=== PATIENT | female | born 1980 | race Caucasian/White ===

== ENCOUNTER → 2020-06-21 08:58 | Outpatient (BNVA) | payer MEDICARE, SELFPAY | PROVIDERS: Family Provider Family Medicine; PCP Registered Nurse; Visit Provider Registered Nurse | DX: Z20.828 Contact with and (suspected) exposure to other viral communicable diseases (principal) | CPT/HCPCS: 87635 ==

== ENCOUNTER → 2021-10-22 09:16 | Outpatient (BNVA) | payer MEDICARE, SELFPAY | PROVIDERS: Family Provider Family Medicine; PCP Registered Nurse; Visit Provider Registered Nurse | DX: F33.1 Major depressive disorder, recurrent, moderate (principal); E78.5 Hyperlipidemia, unspecified; E53.8 Deficiency of other specified B group vitamins; E55.9 Vitamin D deficiency, unspecified; I10 Essential (primary) hypertension; R60.0 Localized edema; F41.9 Anxiety disorder, unspecified; G44.011 Episodic cluster headache, intractable; G90.09 Other idiopathic peripheral autonomic neuropathy; G60.9 Hereditary and idiopathic neuropathy, unspecified; M54.12 Radiculopathy, cervical region; G89.29 Other chronic pain | CPT/HCPCS: 80053; 80061; 82306; 82607; 85025 ==

== ENCOUNTER 2022-05-03 09:08 | Outpatient (CLI) | payer MEDICARE, SELFPAY ==
--- NOTE | 2022-05-03 09:20 | MM_ITS ---
WS: [id number] Bilateral screening 3D tomosynthesis digital mammogram, 05/03/2022 Clinical Data: SCREEN Comparison: None. Findings: The breast parenchymal pattern shows fibroglandular tissue. No spiculated masses or clustered calcifi cations are seen. There are no secondary signs of carcinoma. MM/[place] [id number] Impression: 1. Negative bilateral mammogram with no prior exam for review. 2. Recommend annual screening mammograms. BIRADS: 1-Negative FOLLOW UP: 1 Year Follow-up The CAD chemical checker was used.
== END 2022-05-03 09:09 | disposition home or self-care (01) ==
PROVIDERS: PCP Registered Nurse; Visit Provider Registered Nurse
DX: Z12.31 Encounter for screening mammogram for malignant neoplasm of breast (principal)
CPT/HCPCS: 77063; 77067

== ENCOUNTER → 2022-08-08 11:23 | Outpatient (BNVA) | payer MEDICARE, SELFPAY | PROVIDERS: PCP Registered Nurse; Visit Provider Registered Nurse | DX: E53.8 Deficiency of other specified B group vitamins (principal); Z86.718 Personal history of other venous thrombosis and embolism | CPT/HCPCS: 80053; 82607; 85025 ==

== ENCOUNTER → 2022-08-12 10:57 | Outpatient (BNVA) | payer MEDICARE, SELFPAY | PROVIDERS: PCP Registered Nurse; Visit Provider Registered Nurse | DX: D64.9 Anemia, unspecified (principal) | CPT/HCPCS: 83550; 85007; 85027 ==

== ENCOUNTER → 2022-08-26 10:27 | Outpatient (BNVA) | payer MEDICARE, SELFPAY | PROVIDERS: PCP Registered Nurse; Visit Provider Registered Nurse | DX: Z86.718 Personal history of other venous thrombosis and embolism (principal) | CPT/HCPCS: 85610 ==

== ENCOUNTER → 2022-08-30 11:32 | Outpatient (BNVA) | payer MEDICARE, SELFPAY | PROVIDERS: PCP Registered Nurse; Visit Provider Registered Nurse | DX: Z86.718 Personal history of other venous thrombosis and embolism (principal) | CPT/HCPCS: 85610 ==

== ENCOUNTER → 2022-09-04 10:49 | Outpatient (BNVA) | payer MEDICARE, SELFPAY | PROVIDERS: PCP Registered Nurse; Visit Provider Registered Nurse | DX: Z51.81 Encounter for therapeutic drug level monitoring (principal); Z79.01 Long term (current) use of anticoagulants; Z86.718 Personal history of other venous thrombosis and embolism | CPT/HCPCS: 85610 ==

== ENCOUNTER → 2022-09-06 10:39 | Outpatient (BNVA) | payer MEDICARE, SELFPAY | PROVIDERS: PCP Registered Nurse; Visit Provider Registered Nurse | DX: Z51.81 Encounter for therapeutic drug level monitoring (principal); Z79.01 Long term (current) use of anticoagulants; Z86.718 Personal history of other venous thrombosis and embolism | CPT/HCPCS: 85610 ==

== ENCOUNTER → 2022-09-09 15:50 | Outpatient (BNVA) | payer MEDICARE, SELFPAY | PROVIDERS: PCP Registered Nurse; Visit Provider Nurse Practitioner Family | DX: Z86.718 Personal history of other venous thrombosis and embolism (principal) | CPT/HCPCS: 85610 ==

== ENCOUNTER 2023-04-07 17:02 | Outpatient (CLI) | payer MEDICARE, SELFPAY ==
--- NOTE | 2023-04-07 17:00 | USR_ITS ---
PROCEDURE INFORMATION: Exam: US Left Non-Vascular Joint or Other Extremity Structure Exam date and time: 04/07/2023 5:39 PM Age: 42 years old Clinical indication: Cellulitis; Lower leg; Left; Additional info: L03.116 - cellulitis of left lower limb TECHNIQUE: Imaging protocol: Left US joint or other nonvascular extremity structure or structures. Real-time ultrasound with image documentation. Limited study. Exam focused on the lower extremity in the region of clinical interest. COMPARISON: No relevant prior studies available. FINDINGS: Soft tissues: The increased echogenicity of the subcutaneous tissues in the area of interest. There all also areas of fluid in the fascial planes in the area of interest. There is a complex fluid collection with internal septation and debris lateral to the left knee and in the proximal calf. This measures approximately 6.5 x 1.7 x 5.9 cm. Findings are concerning for an abscess. US/US soft tissue/extremity [id number] IMPRESSION: Findings suspicious for a large abscess with surrounding cellulitis in the area lateral to the left knee and in the proximal/lateral left calf
[2023-04-07 18:02] LABS: Basophils # 0.1 10^3/uL (0.0-0.1); Basophils % 0.9 %; Eosinophils % 0.7 %; Hematocrit 39.6 % (36-47); Lymphocytes # 1.3 10^3/uL (0.8-4.8); Lymphocytes % 23.1 %; Mean Corpuscular HGB Conc 31.6 g/dL (30-55); Mean Corpuscular Hemoglobin 30.6 pg (27-33); Mean Corpuscular Volume 96.8 fl (85-98); Mean Platelet Volume 9.7 fL (7.4-10.4); Monocytes # 0.3 10^3/uL (0.2-0.9); Monocytes % 5.7 %; Neutrophils % 69.2 %; Nucleated Red Blood Cells % 0 %; Platelet Count 210 10^3/cmm (157-399); Red Blood Count 4.09 10^6/uL (3.85-5.65); Red Cell Distribution Width 14.8 % (12.1-15.1); White Blood Count 5.63 10^3/uL (3.29-11.43)
[2023-04-07 18:30] LABS: Alanine Aminotransferase 27 U/L (0-33); Alkaline Phosphatase 66 U/L (35-105); Aspartate Amino Transferase 17 U/L (0-32); Blood Urea Nitrogen 11 mg/dL (6-20); Calcium 8.2 mg/dL (8.5-10.5); Carbon Dioxide 23 mmol/L (22-29); Chloride 107 mmol/L (98-107); Globulin 2.5 g/dL (1.3-4.6); Glomerular Filtration Rate 91.8 mL/min (90-130); Glucose 97 mg/dL (65-115); Osmolality Calculated 289 mOsm/kg (285-295); Sodium 140 mmol/L (136-145); Total Bilirubin 0.2 mg/dL (0.15-1.2); Total Protein 6.5 g/dL (6.6-8.7)
== END 2023-04-07 17:03 | disposition home or self-care (01) ==
PROVIDERS: PCP Registered Nurse; Visit Provider Registered Nurse
DX: L03.116 Cellulitis of left lower limb (principal); R93.6 Abnormal findings on diagnostic imaging of limbs
CPT/HCPCS: 36415; 76882; 80053; 85025

== ENCOUNTER 2023-04-07 20:35 | Inpatient (IN) | payer MEDICARE, SELFPAY ==
[2023-04-07 20:42] VITALS: BP 81/54; PULSE 84; RESP 17; TEMP 36.6; O2SAT 98; BMI 50.3
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
[2023-04-07 21:44] LABS: Basophils # 0.1 10^3/uL (0.0-0.1); Basophils % 0.8 %; Eosinophils # 0.1 10^3/uL (0.0-0.8); Eosinophils % 1.2 %; Hematocrit 41.4 % (36-47); Lymphocytes # 1.9 10^3/uL (0.8-4.8); Lymphocytes % 31.2 %; Mean Corpuscular HGB Conc 30.9 g/dL (30-55); Mean Corpuscular Hemoglobin 29.9 pg (27-33); Mean Corpuscular Volume 96.7 fl (85-98); Monocytes # 0.4 10^3/uL (0.2-0.9); Neutrophils # 3.63 10^3/uL (1.8-7.7); Neutrophils % 60.5 %; Nucleated Red Blood Cells % 0 %; Platelet Count 214 10^3/cmm (157-399); Red Blood Count 4.28 10^6/uL (3.85-5.65); Red Cell Distribution Width 14.9 % (12.1-15.1)
[2023-04-07 21:55] LABS: INR 3.01 (0.8-1.2)
[2023-04-07 21:57] LABS: Alanine Aminotransferase 27 U/L (0-33); Albumin Level 4.2 g/dL (3.5-5.2); Alkaline Phosphatase 71 U/L (35-105); Blood Urea Nitrogen 11 mg/dL (6-20); Calcium 8.6 mg/dL (8.5-10.5); Carbon Dioxide 23 mmol/L (22-29); Chloride 104 mmol/L (98-107); Globulin 2.8 g/dL (1.3-4.6); Glomerular Filtration Rate 78.7 mL/min (90-130); Glucose 84 mg/dL (65-115); Osmolality Calculated 285 mOsm/kg (285-295); Sodium 138 mmol/L (136-145); Total Bilirubin 0.3 mg/dL (0.15-1.2)
[2023-04-07 21:58] LABS: Lactic Sepsis W/Reflex 1.1 mmol/L (0.5-2.2)
[2023-04-07 22:00] VITALS: BP 134/93; PULSE 82; RESP 16; O2SAT 98
[2023-04-07 22:02] LABS: Anion Gap 14.8 (5-19); Aspartate Amino Transferase 25 U/L (0-32); Potassium 3.8 mmol/L (3.5-5.1)
[2023-04-07 22:15] VITALS: BP 138/98; PULSE 88; RESP 15; O2SAT 96
[2023-04-07 22:30] VITALS: BP 143/97; PULSE 86; RESP 16; O2SAT 97
--- NOTE | 2023-04-07 22:38 | XRR_ITS ---
PROCEDURE INFORMATION: Exam: XR Left Knee Exam date and time: 04/07/2023 10:43 PM Age: 42 years old Clinical indication: Swelling or effusion of joint; Prior surgery; Surgery date: 6+ months; Surgery type: Lt knee; Additional info: Fall abscess TECHNIQUE: Imaging protocol: Radiologic exam of the left knee. Views: 3 views. COMPARISON: US soft tissue/extremity [id number] 04/07/2023 5:39 PM FINDINGS: Bones/joints: No acute fracture. No dislocation. Normal bone mineralization. Patient has had a previous left ACL reconstruction. No evidence for loosening of the surgical hardware. Mild tricompartment degenerative changes at the knee. No lytic or sclerotic bony lesions. Calcification lateral to the lateral femoral condyle that may represent sequela of old trauma or surgery. Soft tissues: Soft tissue swelling lateral to the left knee. 7.5 x 2.8 cm fluid collection in the subcutaneous tissues lateral to the left knee, this likely corresponds to the abscess noted on the prior ultrasound. No radiopaque foreign body. XR/XR knee LT 3V* [id number] IMPRESSION: 1. Soft tissue swelling lateral to the left knee. 7.5 x 2.8 cm fluid collection in the subcutaneous tissues lateral to the left knee, this likely corresponds to the abscess noted on the prior ultrasound. 2. No acute fracture of the left knee. Followup imaging recommended in 7-14 days if clinical concern for fracture persists. 3. Patient has had a previous left ACL reconstruction. No evidence for loosening of the surgical hardware. 4. Mild tricompartment degenerative changes at the knee. 5. Calcification lateral to the lateral femoral condyle that may represent sequela of old trauma or cyst surgery.
[2023-04-07 23:00] VITALS: BP 152/100; PULSE 88; RESP 15; O2SAT 98
[2023-04-08 01:23] VITALS: BP 129/81; PULSE 88; RESP 16; TEMP 36.7; O2SAT 99
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
[2023-04-08] MEDS: ketorolac 30 mg/mL INJ 15 MG IVP ×2 (02:50→14:32)
[2023-04-08] MEDS: heparin drip 25,000 UNIT/500 ML PREMIX 36 UNIT IV (03:17)
[2023-04-08] MEDS: heparin 5,000 unit/mL INJ 1 mL IV (03:17)
[2023-04-08 04:24] VITALS: RESP 16
[2023-04-08 04:38] LABS: Erythrocyte Sedimentation Rate 7 mm/hr (0-15)
[2023-04-08 04:40] LABS: Basophils # 0.1 10^3/uL (0.0-0.1); Eosinophils # 0.1 10^3/uL (0.0-0.8); Eosinophils % 1.7 %; Hematocrit 40.1 % (36-47); Lymphocytes # 1.5 10^3/uL (0.8-4.8); Lymphocytes % 28.7 %; Mean Corpuscular HGB Conc 30.9 g/dL (30-55); Mean Corpuscular Hemoglobin 30.7 pg (27-33); Mean Corpuscular Volume 99.3 fl (85-98); Mean Platelet Volume 10.6 fL (7.4-10.4); Monocytes # 0.3 10^3/uL (0.2-0.9); Monocytes % 6.3 %; Neutrophils # 3.23 10^3/uL (1.8-7.7); Neutrophils % 61.7 %; Nucleated Red Blood Cells % 0 %; Platelet Count 191 10^3/cmm (157-399); Red Blood Count 4.04 10^6/uL (3.85-5.65); Red Cell Distribution Width 14.9 % (12.1-15.1); White Blood Count 5.23 10^3/uL (3.29-11.43)
[2023-04-08 04:43] LABS: HCG, Serum Qual Negative (Negative)
[2023-04-08 04:46] VITALS: BP 117/88; PULSE 76; RESP 17; TEMP 36.6; O2SAT 99
[2023-04-08 04:47] LABS: INR 3.59 (0.8-1.2)
[2023-04-08 04:55] LABS: Alanine Aminotransferase 26 U/L (0-33); Albumin Level 4.1 g/dL (3.5-5.2); Alkaline Phosphatase 68 U/L (35-105); Aspartate Amino Transferase 19 U/L (0-32); Blood Urea Nitrogen 11 mg/dL (6-20); Calcium 8.7 mg/dL (8.5-10.5); Carbon Dioxide 23 mmol/L (22-29); Chloride 105 mmol/L (98-107); Globulin 2.8 g/dL (1.3-4.6); Glomerular Filtration Rate 91.8 mL/min (90-130); Glucose 82 mg/dL (65-115); Osmolality Calculated 288 mOsm/kg (285-295); Sodium 140 mmol/L (136-145); Total Bilirubin 0.3 mg/dL (0.15-1.2); Total Protein 6.9 g/dL (6.6-8.7)
[2023-04-08 05:24] LABS: Anion Gap 15.6 (5-19); Potassium 3.6 mmol/L (3.5-5.1)
[2023-04-08] MEDS: metoprolol succinate ER (24 HR) 25 mg Tablet PO (05:30)
[2023-04-08 07:20] VITALS: BP 102/73; PULSE 78; RESP 18; TEMP 36.8; O2SAT 99
[2023-04-08] MEDS: pantoprazole DR 40 mg Tablet PO (08:51)
--- NOTE | 2023-04-08 09:53 | PC.CHAP ---
Pastoral Care Encounter/Spiritual Assessment Type of Contact [] Declined pedigree tracer visit [] Patient/Family/Request visit [] Outpatient visit [] Follow-up visit [] Physician referral [] Code/Alert [] Routine visit [] Staff referral [] Actively dying [] Patient sleeping [] Family support [] [] Out of room [] Palliative care [] [x] Receiving care in room [] Pre-surgical visit [] Trauma [] Long length of stay [] ICU visit [] Other: Relational/Emotional Strength [] Patient feels connected with others/family/visitors/staff [] Distress [] Loneliness/isolation [] Abandonment Spirituality of Patient [] Person of Saba [] Attends Druze of their Saba [] Believes in Prayer [] Reads Bible or Denominational materials [] There are Spiritual issues to be addressed Transit Department Clerk Interventions [] Prayer [] Active listening [] Non-anxious presence [] Spiritual/emotional support [] Crisis/trauma care [] Spiritual counseling [] Bereavement support [] Provided bereavement packet [] Provided Bible/devotional materials [] Provided toy/stuffed animal, coloring book to patient or family member [] Provided Communion [] Anointing/[place] [] Salvation [] Completed spiritual assessment [] Other: Impact on Illness or Injury [] Angry [] Fearful [] Anxious [] Often cries [] Exhaustion [] Unable to work [] Unable to attend samaritan [] Unable to walk/stand [] Unable to read [] Unable to drive [] Unable to eat/drink [] Unable to sleep [] Unable to be with family [] Patient intubated [] Other: Summary Time spent with patient
[2023-04-08 10:21] LABS: Partial Thromboplastin Time > 250.0 SECONDS (23.9-36.7)
[2023-04-08 10:57] LABS: INR 3.08 (0.8-1.2)
[2023-04-08] MEDS: gadobenate dimeglumine 20 mL vial IV (12:01)
[2023-04-08] MEDS: vancomycin 1,500 MG/300 ML PIGGYBACK 200 MG IV (14:22)
[2023-04-08] MEDS: cyclobenzaprine 10 mg Tablet PO (14:23)
[2023-04-08 14:56] LABS: Partial Thromboplastin Time 32.3 SECONDS (23.9-36.7)
[2023-04-08 15:25] VITALS: BP 128/84; PULSE 84; RESP 18; TEMP 36.9; O2SAT 100
[2023-04-08] MEDS: meropenem 1,000 MG in sodium chloride 0.9% (plus) 50 ML 100 MG IV (16:27)
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
[2023-04-08] MEDS: topiramate 25 mg Tablet 50 MG PO (17:19)
[2023-04-08] MEDS: metoprolol succinate ER (24 HR) 25 mg Tablet 50 MG PO (17:19)
--- NOTE | 2023-04-08 20:06 | PC.NURSE ---
Report was called to Heather Hernandez RN at [facility]. [facility] medical transport was called for transfer. [facility] here to take patient to [facility]. Heparin drip infusing at 36ml/hr upon departure. Vitals WNL. All belongings sent with patient. Hospital was notified of patients departure time.
[2023-04-08 20:09] VITALS: BP 128/84; PULSE 84; RESP 18; TEMP 36.9; O2SAT 100
--- NOTE | 2023-04-08 22:23 | MR_ITS ---
WS: [id number] MRI LEFT LOWER EXTREMITY WITH AND WITHOUT CONTRAST. COMPARISON: Radiographs 04/07/2023 and soft tissue ultrasound 04/07/2023. Multiplanar, multisequence imaging is performed with and without contrast. MultiHance 20 mL IV. Status post ACL repair. Surgical hardware with artifact in the proximal tibia. There is a very large amount of soft tissue edema surrounding the entire LEFT lower extremity. The edema is more significan t laterally. There is a fluid collection in the soft tissues which abuts the muscles of the lateral l ower extremity. There is enhancement of the wall of this fluid collection consistent with an abscess. Fluid collection with enhancing wall extends over a length of 8.4 cm and begins at the level of the tibial metaphysis. Anterior posterior diameter 5.8 cm in transverse diameter 2.2 cm. There is additio nal marked edema throughout the lobulations. There is a smaller fluid collection which which is above the larger collection at the level of the knee joint. These 2 collections are probably contiguous. No marrow edema. No osteomyelitis is identified. The abscess extends to the muscles in the fascial pl ane but not the bone. IMPRESSION: 1. Abscess collection along the lateral superior LEFT tibia measures 5.8 x 2.2 x 8.4 cm. There is a s maller collection more superiorly at the level of the knee joint. These collections are probably cont iguous. 2. Marked extensive soft tissue edema surrounding the LEFT lower extremity greatest along the lateral leg. 3. No osteomyelitis.
== END 2023-04-08 20:10 | disposition short-term general hospital (02) | DRG 603 ==
LOC: ER 22:29 → MEDSURG 23:28
PROVIDERS: Admitting Provider Student in an Organized Health Care Education/Training Program; Emergency Provider Emergency Medicine; PCP Registered Nurse; Visit Provider Family Medicine
DX: L02.416 Cutaneous abscess of left lower limb (principal); Z86.718 Personal history of other venous thrombosis and embolism; F17.290 Nicotine dependence, other tobacco product, uncomplicated; R79.1 Abnormal coagulation profile; Z86.14 Personal history of Methicillin resistant Staphylococcus aureus infection; Z79.01 Long term (current) use of anticoagulants
CPT/HCPCS: 36415; 73562; 73720; 76882; 80053; 83605; 84703; 85025; 85610; 85651; 85730; 86140; 87040; 99285; A9577; J1644; J1885; J2185; J3370

== ENCOUNTER 2023-05-02 16:33 | Outpatient (CLI) | payer MEDICARE, SELFPAY ==
[2023-05-02 17:36] LABS: Alanine Aminotransferase 13 U/L (0-33); Albumin Level 4.2 g/dL (3.5-5.2); Alkaline Phosphatase 71 U/L (35-105); Anion Gap 17.2 (5-19); Aspartate Amino Transferase 14 U/L (0-32); Blood Urea Nitrogen 5 mg/dL (6-20); Calcium 8.2 mg/dL (8.5-10.5); Carbon Dioxide 23 mmol/L (22-29); Chloride 104 mmol/L (98-107); Glomerular Filtration Rate 91.8 mL/min (90-130); Glucose 80 mg/dL (65-115); Osmolality Calculated 288 mOsm/kg (285-295); Potassium 3.2 mmol/L (3.5-5.1); Sodium 141 mmol/L (136-145); Total Bilirubin 0.2 mg/dL (0.15-1.2); Total Protein 6.2 g/dL (6.6-8.7)
== END 2023-05-02 16:34 | disposition home or self-care (01) ==
PROVIDERS: PCP Registered Nurse; Visit Provider Registered Nurse
DX: L03.116 Cellulitis of left lower limb (principal)
CPT/HCPCS: 80053

== ENCOUNTER 2023-05-06 15:54 | Outpatient (CLI) | payer MEDICARE, SELFPAY ==
[2023-05-06 16:20] LABS: Basophils # 0.1 10^3/uL (0.0-0.1); Basophils % 1.2 %; Eosinophils # 0.1 10^3/uL (0.0-0.8); Eosinophils % 1.2 %; Hematocrit 42.8 % (36-47); Lymphocytes # 1.7 10^3/uL (0.8-4.8); Lymphocytes % 38.4 %; Mean Corpuscular HGB Conc 31.8 g/dL (30-55); Mean Corpuscular Hemoglobin 30.1 pg (27-33); Mean Corpuscular Volume 94.7 fl (85-98); Monocytes # 0.3 10^3/uL (0.2-0.9); Monocytes % 6.7 %; Neutrophils # 2.24 10^3/uL (1.8-7.7); Nucleated Red Blood Cells % 0 %; Platelet Count 157 10^3/cmm (157-399); Red Blood Count 4.52 10^6/uL (3.85-5.65); Red Cell Distribution Width 13.9 % (12.1-15.1)
== END 2023-05-06 15:55 | disposition home or self-care (01) ==
LOC: LAB 15:58
PROVIDERS: PCP Registered Nurse; Visit Provider Registered Nurse
DX: L03.116 Cellulitis of left lower limb (principal); D64.9 Anemia, unspecified
CPT/HCPCS: 85025